=== PATIENT | male | born 1975 | race Caucasian/White ===

== ENCOUNTER 2016-11-07 16:33 | Emergency (ER) | payer OTHER ==
[~2016-11-07] VITALS: Ht 170.1 cm; Wt 59.0 kg
[~2016-11-07 16:33] MED LIST: ALBUTEROL0.09 MG/A2 INH; ANAPROX DS550 MG PO; CLARITIN10 MG PO; CORDROL20 MG PO; FLEXERIL10 MG PO; MOTRIN800 MG PO; PREDNICOT10 MG PO; PREDNICOT20 MG PO; PRILOSEC20 MG PO; PROVENTIL0.09 MG/AC IH; SINGULAIR10 MG PO; TOBRADEX 0.1%-0.5 ML OPH; ULTRAM50 MG PO; VENTOLIN H0.09 MG/AC INH; ZITHROMAX Z PA250 MG PO; ZOFRAN4 MG PO
[2016-11-07] MEDS ORDERED: DULERA 100 MCG8.8 GM IH (16:49)
[2016-11-08] MEDS ORDERED: PREDNISONE50 MG PO (10:07)
[2016-11-08] MEDS ORDERED: ZITHROMAX250 MG PO (10:07)
== END 2016-11-07 17:16 | disposition home or self-care (01) ==
LOC: ED 16:33
DX: S05.52XA Penetrating wound with foreign body of left eyeball, initial encounter (principal); Z79.899 Other long term (current) drug therapy; X58.XXXA Exposure to other specified factors, initial encounter; Y93.89 Activity, other specified; Y92.69 Other specified industrial and construction area as the place of occurrence of the external cause; Y99.9 Unspecified external cause status

== ENCOUNTER 2016-11-08 07:45 | Emergency (ER) | payer OTHER ==
[~2016-11-08] VITALS: Ht 170.1 cm; Wt 59.0 kg
[~2016-11-08 07:45] MED LIST changes: +DULERA 100 MCG8.8 GM IH
[2016-11-08] MEDS ORDERED: PREDNISONE50 MG PO (10:07)
[2016-11-08] MEDS ORDERED: ZITHROMAX250 MG PO (10:07)
== END 2016-11-08 10:14 | disposition home or self-care (01) ==
LOC: ED 07:45
DX: J45.901 Unspecified asthma with (acute) exacerbation (principal); F17.200 Nicotine dependence, unspecified, uncomplicated; Z79.899 Other long term (current) drug therapy

== ENCOUNTER 2017-11-16 10:09 | Emergency (ER) | payer OTHER ==
[~2017-11-16] VITALS: Wt 62.6 kg
[~2017-11-16 10:09] MED LIST changes: +PREDNISONE50 MG PO; +ZITHROMAX250 MG PO
[2017-11-16] MEDS ORDERED: SINGULAIR10 M1 PO (10:22)
[2017-11-16] MEDS ORDERED: CLARITIN10 MG PO (10:22)
[2017-11-16] MEDS ORDERED: FLONASE ALLERG9.9 ML NAS (10:22)
[2017-11-16] MEDS ORDERED: PREDNISONE10 MG PO (10:22)
== END 2017-11-16 12:15 | disposition home or self-care (01) ==
LOC: ED 10:09
DX: J44.1 Chronic obstructive pulmonary disease with (acute) exacerbation (principal); R03.0 Elevated blood-pressure reading, without diagnosis of hypertension

== ENCOUNTER 2018-05-29 13:31 | Emergency (ER) | payer OTHER ==
[~2018-05-29] VITALS: Ht 170.1 cm; Wt 63.5 kg
[~2018-05-29 13:31] MED LIST changes: +FLONASE ALLERG9.9 ML NAS; +PREDNISONE10 MG PO; +SINGULAIR10 M1 PO
[2018-05-29] MEDS ORDERED: PREDNISONE10 MG PO (16:26)
== END 2018-05-29 16:41 | disposition home or self-care (01) ==
LOC: ED 13:31
DX: S29.011A Strain of muscle and tendon of front wall of thorax, initial encounter (principal); J45.909 Unspecified asthma, uncomplicated; F17.200 Nicotine dependence, unspecified, uncomplicated; Z79.899 Other long term (current) drug therapy; X58.XXXA Exposure to other specified factors, initial encounter; Y93.89 Activity, other specified; Y92.89 Other specified places as the place of occurrence of the external cause; Y99.8 Other external cause status

== ENCOUNTER 2019-11-21 06:48 | Emergency (ER) | payer OTHER ==
[~2019-11-21] VITALS: Ht 170.1 cm; Wt 63.5 kg
[2019-11-21 07:30] LABS: BASO % 0.4 % (0.0-1.0); EOS # 0.9 10*3/uL (0.0-0.4); EOS % 12.6 % (1.0-4.0); HEMATOCRIT 47.2 % (42.0-52.0); LYMPH # 2.9 10*3/uL (1.3-4.4); LYMPH % 39.2 % (27.0-41.0); MEAN CELL VOLUME 95.7 fl (80.0-94.0); MEAN CORPUSCULAR HGB CONC 33.5 g/dl (33.0-37.0); MONO # 0.8 10*3/uL (0.1-1.0); MONO % 10.4 % (3.0-9.0); NEUT # 2.7 10*3/uL (2.3-7.9); NEUT % 36.9 % (47.0-73.0); PLATELET COUNT AUTOMATED 226 10*3/uL (130-400); RED BLOOD COUNT 4.93 10*6/uL (4.50-5.90); RED CELL DISTRI WIDTH 12.2 % (0-14.5); WHITE BLOOD COUNT 7.4 10*3/uL (4.8-10.8)
[2019-11-21 07:45] LABS: BUN 15 mg/dl (7-24); CHLORIDE 106 mmol/L (98-107); CREATININE 0.72 mg/dL (0.70-1.30); POTASSIUM 4.1 mmol/L (3.5-5.1); SODIUM 140 mmol/L (136-145)
[2019-11-21 07:47] LABS: TROPONIN I < 0.015 ng/ml (<0.045)
[2019-11-21] MEDS ORDERED: PREDNISONE50 MG PO (08:01)
== END 2019-11-21 08:16 | disposition home or self-care (01) ==
LOC: ED 06:48
PROVIDERS: Emergency Medicine
DX: J45.901 Unspecified asthma with (acute) exacerbation (principal); F17.210 Nicotine dependence, cigarettes, uncomplicated; Z79.899 Other long term (current) drug therapy

== ENCOUNTER 2020-06-17 18:40 | Emergency (ER) | payer OTHER ==
[~2020-06-17] VITALS: Ht 170.1 cm; Wt 64.4 kg
[2020-06-17 19:41] LABS: BASO % 0.5 % (0.0-1.0); EOS # 0.3 10*3/uL (0.0-0.4); EOS % 5.1 % (1.0-4.0); HEMATOCRIT 46.7 % (42.0-52.0); LYMPH # 2.6 10*3/uL (1.3-4.4); LYMPH % 41.7 % (27.0-41.0); MEAN CELL VOLUME 95.5 fl (80.0-94.0); MEAN CORPUSCULAR HGB 31.7 pg (27.0-31.0); MEAN CORPUSCULAR HGB CONC 33.2 g/dl (33.0-37.0); MEAN PLATELET VOLUME 9.9 fl (9.6-12.3); MONO # 0.7 10*3/uL (0.1-1.0); MONO % 11.3 % (3.0-9.0); NEUT # 2.5 10*3/uL (2.3-7.9); NEUT % 40.9 % (47.0-73.0); PLATELET COUNT AUTOMATED 229 10*3/uL (130-400); RED BLOOD COUNT 4.89 10*6/uL (4.50-5.90); RED CELL DISTRI WIDTH 12.4 % (0-14.5); WHITE BLOOD COUNT 6.1 10*3/uL (4.8-10.8)
[2020-06-17 19:59] LABS: ALBUMIN 3.6 gm/dl (3.1-4.5); ALKALINE PHOSPHATASE 86 U/L (45-117); BUN 18 mg/dl (7-24); CHLORIDE 107 mmol/L (98-107); POTASSIUM 4.5 mmol/L (3.5-5.1); SGOT/AST 24 IU/L (3-35); SGPT/ALT 37 U/L (12-78); SODIUM 141 mmol/L (136-145); TOTAL PROTEIN 7.3 gm/dL (6.4-8.2)
[2020-06-17 20:00] LABS: TROPONIN I < 0.015 ng/ml (<0.045)
[2020-06-17] MEDS ORDERED: ROBAXIN-750750 MG PO (20:11)
[2020-06-17] MEDS ORDERED: NAPROSYN500 MG PO (20:11)
== END 2020-06-17 20:43 | disposition home or self-care (01) ==
LOC: ED 18:40
PROVIDERS: Internal Medicine
DX: R07.89 Other chest pain (principal); Z79.899 Other long term (current) drug therapy